=== PATIENT | female | born 1995 | race Caucasian/White ===

== ENCOUNTER 2022-11-04 10:25 | Inpatient (IN) | payer OTHER ==
[~2022-11-04 10:25] MED LIST: Acetaminophen/oxyCODONE 325-5 MG Tab PO PRN; Albuterol 0.083% 2.5 MG/3 ML Neb Soln NEB PRN; Dexamethasone 4 MG/ML 5 ML MDV ONE; HYDROmorphone 1 MG/ML Syringe IVPUSH PRN; Ketorolac 30 MG/ML SDV ONE; Lidocaine 2% 5 ML SDV ONE; Metoclopramide 10 MG/2 ML SDV IVPUSH PRN; Morphine 2 MG/ML SYRINGE IVPUSH PRN; Morphine PF 10 MG/10 ML SDV ONE; Naloxone 0.4 MG/ML SDV IVPUSH PRN; Ondansetron 4 MG/2 ML SDV IVPUSH PRN; Ondansetron 4 MG/2 ML SDV ONE; Oxytocin 10 Units/1 ML SDV ONE; Phenylephrine 1% 10 MG/ML SDV ONE; Phenylephrine HCl In 0.9% NaCl 1 MG/10 ML Vial IVPUSH SCH; Ropivacaine 0.5% 5 MG/ML 30 ML SDV ONE; ceFAZolin 1 GM Vial ONE; diphenhydrAMINE 50 MG/ML SDV IVPUSH PRN; ePHEDrine 50 MG/ML SDV IVPUSH PRN; fentaNYL 100 MCG/2 ML SDV IVPUSH PRN; fentaNYL 100 MCG/2 ML SDV ONE; fentaNYL 50 MCG/ML SDV IVPUSH PRN
[2022-11-04] MEDS ORDERED: Sodium Chloride 0.9% 10 ML Syringe FLUSH PRN (10:41)
[2022-11-04] MEDS ORDERED: ceFAZolin 2 GM in Premix Bag 1 BAG IV ONE (10:41)
[2022-11-04] MEDS ORDERED: Sodium Chloride 0.9% 20 ML SDV IV PRN (10:41)
[2022-11-04] MEDS ORDERED: Sodium Chloride 0.9% 2.5 ML Syringe FLUSH PRN (10:41)
[2022-11-04] MEDS ORDERED: Citric Acid/Sodium Citrate Solution 30 ML Cup PO ONE (10:41)
[2022-11-04] MEDS ORDERED: Lactated Ringers 1,000 ML IV SCH ×2 (10:45→12:45)
[2022-11-04] MEDS ORDERED: Oxytocin/0.9 % Sodium Chloride 30 UNIT/500 ML BAG IV SCH ×2 (10:45→12:45)
[2022-11-04] MEDS ORDERED: Acetaminophen/oxyCODONE 325-5 MG Tab PO PRN (12:45)
[2022-11-04] MEDS ORDERED: Methylergonovine 0.2 MG/1 ML Amp IM PRN (12:45)
[2022-11-04] MEDS ORDERED: Lanolin 100% Cream 7 GM Tube TOP PRN (12:45)
[2022-11-04] MEDS ORDERED: Bisacodyl 10 MG Supp RECTAL PRN (12:45)
[2022-11-04] MEDS ORDERED: Misoprostol 200 MCG Tab RECTAL PRN (12:45)
[2022-11-04] MEDS ORDERED: Oxytocin 10 Units/1 ML SDV IM PRN (12:45)
[2022-11-04] MEDS ORDERED: diphenhydrAMINE 50 MG/ML SDV IVPUSH PRN (12:45)
[2022-11-04] MEDS ORDERED: Ondansetron 4 MG/2 ML SDV IVPUSH PRN (12:45)
[2022-11-04] MEDS ORDERED: Tranexamic Acid 1,000 MG in Sodium Chloride 0.9% 100 ML IV PRN (12:45)
[2022-11-04] MEDS ORDERED: Ketorolac 30 MG/ML SDV IVPUSH SCH (16:00)
[2022-11-04] MEDS: Docusate Sodium 100 MG Cap PO SCH (22:01)
[2022-11-05] MEDS: Ketorolac 30 MG/ML SDV IVPUSH SCH ×4 (00:45→20:59)
[2022-11-05] MEDS: Docusate Sodium 100 MG Cap PO SCH ×2 (09:04→20:57)
[2022-11-05] MEDS: Acetaminophen/oxyCODONE 325-5 MG Tab PO PRN (20:58)
[2022-11-06] MEDS: Ibuprofen 800 MG Tab PO PRN ×2 (00:29→08:33)
[2022-11-06] MEDS: Acetaminophen/oxyCODONE 325-5 MG Tab PO PRN ×2 (04:55→08:59)
[2022-11-06] MEDS: Docusate Sodium 100 MG Cap PO SCH (08:33)
== END 2022-11-06 17:42 | disposition home or self-care (01) | DRG 788 ==
LOC: MW.OB 10:25
PROVIDERS: ADMIT Obstetrics & Gynecology; ATTEND Obstetrics & Gynecology
PROC: 10D00Z1 Extraction of Products of Conception, Low, Open Approach (ICD-10-PCS; principal; 2022-11-04)
DX: O34.211 Maternal care for low transverse scar from previous cesarean delivery (principal); Z3A.39 39 weeks gestation of pregnancy; Z37.0 Single live birth; Z86.16 Personal history of COVID-19; Z28.310 Unvaccinated for COVID-19
CPT/HCPCS: 01961; 36415; 64488; 82803; 85014; 85018; 85027; 86592; 86850; 86900; 86901; A9270-GY; J0131; J0690; J1100; J1885; J2274; J2370; J2405; J2590; J2795; J3010; J7120

== ENCOUNTER 2023-06-12 10:55 | Day surgery (SDC) | payer OTHER ==
[~2023-06-12 10:55] MED LIST changes: -Acetaminophen/oxyCODONE 325-5 MG Tab PO PRN; -Albuterol 0.083% 2.5 MG/3 ML Neb Soln NEB PRN; -Dexamethasone 4 MG/ML 5 ML MDV ONE; -HYDROmorphone 1 MG/ML Syringe IVPUSH PRN; -Ketorolac 30 MG/ML SDV ONE; +Lactated Ringers 1,000 ML IV SCH; -Metoclopramide 10 MG/2 ML SDV IVPUSH PRN; -Morphine 2 MG/ML SYRINGE IVPUSH PRN; -Morphine PF 10 MG/10 ML SDV ONE; -Naloxone 0.4 MG/ML SDV IVPUSH PRN; -Ondansetron 4 MG/2 ML SDV IVPUSH PRN; -Oxytocin 10 Units/1 ML SDV ONE; -Phenylephrine 1% 10 MG/ML SDV ONE; -Phenylephrine HCl In 0.9% NaCl 1 MG/10 ML Vial IVPUSH SCH; -Ropivacaine 0.5% 5 MG/ML 30 ML SDV ONE; +Sodium Chloride 0.9% 10 ML Syringe FLUSH PRN; +Sodium Chloride 0.9% 2.5 ML Syringe FLUSH PRN; +Sodium Chloride 0.9% 20 ML SDV IV PRN; -ceFAZolin 1 GM Vial ONE; -diphenhydrAMINE 50 MG/ML SDV IVPUSH PRN; -ePHEDrine 50 MG/ML SDV IVPUSH PRN; -fentaNYL 100 MCG/2 ML SDV IVPUSH PRN; -fentaNYL 100 MCG/2 ML SDV ONE; -fentaNYL 50 MCG/ML SDV IVPUSH PRN; +propofoL 50 ML ONE
== END 2023-06-12 12:25 | disposition home or self-care (01) ==
LOC: MW.SDS 10:55
PROVIDERS: ATTEND Surgery
DX: K64.3 Fourth degree hemorrhoids (principal); K60.2 Anal fissure, unspecified; Z79.899 Other long term (current) drug therapy
CPT/HCPCS: 45380; 81025; J2405; J2704; J7120; 00811; J3490

== ENCOUNTER 2023-07-17 07:58 | Day surgery (SDC) | payer OTHER ==
[~2023-07-17 07:58] MED LIST changes: -Lidocaine 2% 5 ML SDV ONE; -Ondansetron 4 MG/2 ML SDV ONE; -propofoL 50 ML ONE
[2023-07-17] MEDS ORDERED: Morphine 2 MG/ML SYRINGE IVPUSH PRN (08:06)
[2023-07-17] MEDS ORDERED: Metoclopramide 10 MG/2 ML SDV IVPUSH PRN (08:06)
[2023-07-17] MEDS ORDERED: Naloxone 0.4 MG/ML SDV IVPUSH PRN (08:06)
[2023-07-17] MEDS ORDERED: fentaNYL 50 MCG/ML SDV IVPUSH PRN (08:06)
[2023-07-17] MEDS ORDERED: Albuterol 0.083% 2.5 MG/3 ML Neb Soln NEB PRN (08:06)
[2023-07-17] MEDS ORDERED: Ondansetron 4 MG/2 ML SDV IVPUSH PRN (08:06)
[2023-07-17] MEDS ORDERED: HYDROmorphone 1 MG/ML Syringe IVPUSH PRN (08:06)
[2023-07-17] MEDS ORDERED: droPERidol 5 MG/2 ML SDV IVPUSH PRN (08:06)
[2023-07-17] MEDS ORDERED: fentaNYL 100 MCG/2 ML SDV ONE (08:43)
[2023-07-17] MEDS ORDERED: Chloroprocaine 10 MG/ML 5 ML Amp ONE (08:44)
[2023-07-17] MEDS ORDERED: propofoL 50 ML ONE (08:55)
[2023-07-17] MEDS ORDERED: cefOXitin 1 GM Vial ONE (09:54)
[2023-07-17] MEDS ORDERED: Bupivacaine 0.5% 30 ML SDV ONE (09:59)
[2023-07-17] MEDS ORDERED: Lidocaine 2% 11 ML Jelly Filled Syringe ONE (10:00)
[2023-07-17] MEDS ORDERED: ePHEDrine 50 MG/ML SDV ONE (10:08)
[2023-07-17] MEDS ORDERED: Phenylephrine HCl 0.5 MG/5 ML AMP ONE (10:08)
[2023-07-17] MEDS ORDERED: Ketorolac 30 MG/ML SDV ONE (10:11)
[2023-07-17] MEDS ORDERED: cefOXitin 2 GM in Sodium Chloride 0.9% 50 ML IV ONE (12:08)
== END 2023-07-17 11:40 | disposition home or self-care (01) ==
LOC: MW.SDS 07:58
PROVIDERS: ATTEND Surgery
DX: K64.2 Third degree hemorrhoids (principal); Z79.899 Other long term (current) drug therapy; Z87.59 Personal history of other complications of pregnancy, childbirth and the puerperium
CPT/HCPCS: 46255; 81025; A9270; J0694; J1885; J2401; J2704; J3010; J3490; J7120; 00902; J2371